=== PATIENT | female | born 1950 | race Caucasian/White ===

== ENCOUNTER → 2017-06-19 | Day surgery (SDC) | payer MEDICARE, BC ==
[~2017-06-19] MED LIST: AMLODIPINE BESY10 MG PO; ASPIRIN; ASPIRIN81 M1 PO; ASPIRIN81 MG PO; B COMPLEX1 CA1 PO; CARAFATE1 G PO; CELEXA20 MG PO; FLAGYL PO; HYDROCODONE-APA1 T42 PO; KEFLEX; LISINOPRIL20 MG PO; LOTREL 10/20 MG1 CAP; MELOXICAM15 MG PO; NORCO 7.5/325 T1 TAB; NORVASC10 MG PO; OMEPRAZOLE40 MG PO; PAMELOR50 M1 PO; PAXIL; PREMARIN; PRILOSEC; PRILOSEC40 MG PO; PRINIVIL20 M1 PO; PROTONIX PO; SIMVASTATIN20 MG PO; ULTRACET TABLET1 TAB PO; VICODIN 5/500 T1 TAB; VITAMIN D2000 UNI1 PO; VYTORIN 10/20 T1 TAB; WELCHOL625 MG PO; ZOCOR PO; ZOCOR20 MG PO
--- NOTE | ~2017-06-19 | OR ---
Unit #: [id number] #: [id number] Patient: SPEEDY KILGORE [id number] [address] [place], [place] [address] [id number] O MR#: [id number] NAME: SPEEDY KILOGRE ROOM: Date of Procedure: 06/19/2017 Admission Date: 06/19/2017 Surgeon: Ross Crump M.D. : 1950 Attending Physician: Ross Crump M.D. Primary Care Physician: Primary Care Physician No OPERATIVE REPORT PREOPERATIVE DIAGNOSES The patient presented with history of epigastric pain, dyspepsia, heartburn as well as in addition, she needs colorectal cancer screening or surveillance colonoscopy, having had previous history of colon polyps. PROCEDURES PERFORMED Upper gastrointestinal endoscopy and biopsy as well as colonoscopy with polypectomy. POSTOPERATIVE DIAGNOSES For upper endoscopy: 1. The patient had multiple polyps in the prepyloric antral area. In addition, there was evidence of prepyloric antral diffuse gastritis. 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 A biopsy obtained from the antrum for CLOtest. Rest of the examination up to third part of duodenum was normal. For colonoscopy: 1. Two sessile polyps noted both in the ascending colon, these were 5 mm and a 1 cm each. Both were removed using snare cautery polypectomy. They were retrieved and sent for histology. Rest of the examination up to cecum and terminal ileum was normal. The quality of the prep was excellent. RECOMMENDATIONS The patient will be followed up in the office in 3 to 4 months' time. In the meantime, she will continue on current dose of PPI therapy. Nexium 40 mg p.o. daily. SEDATION USED MAC. DESCRIPTION OF PROCEDURE Following detailed explanation of the potential risks and complications of an upper endoscopy and a colonoscopy, namely perforation, bleeding, and complications related to sedation, the patient was brought to GI lab and laid in the left lateral decubitus position. Lubricated tip of the Olympus video upper endoscope was passed through the bite block into the proximal esophagus under direct vision. The entire esophageal mucosa was examined and appeared normal. Z-line was nicely demarcated, there being no esophagitis or hiatus hernia. The scope was then advanced into the gastric cavity and the latter was insufflated. Mucosa of the fundus, body, and antrum examined. The patient was noted to have multiple sessile polyps in the prepyloric antral area along with evidence of gastritis and Unit #: [id number] #: [id number] Patient: SPEEDY KILGORE Y multiple AVMs, none of which were actively bleeding. Pylorus was intubated with visualization of normal duodenal bulb and second and third part of the duodenum. Upon withdrawal and retroflexion, incisura, cardia, and greater curve examined and biopsy obtained from the antrum for CLOtest. The scope was then withdrawn in the distal esophagus. The entire esophageal mucosa was examined all the way up to pharynx. No additional findings noted. The examination table was then turned by 180 degrees and the patient positioned for a colonoscopy. A digital rectal examination was performed, which was normal. Lubricated tip of the Olympus video colonoscope was inserted through the anus and advanced under direct vision. The scope was advanced and passed up to sigmoid into descending colon. No diverticula were noted in this area. The scope tip was then navigated all the way up to cecum with visualization of the ileocecal valve and the appendiceal orifice. Preparation was excellent with good visualization and photodocumentation was obtained. Last few inches of terminal ileum also visualized after intubation of the ileocecal valve and appeared normal. Successive segments of the colonic mucosa were examined upon withdrawal. Two polyps noted in the ascending colon, these were 5 mm and 1 cm each. Both were removed using snare cautery polypectomy. They were retrieved and sent for histology. No additional polyps noted. The patient did not have any diverticulosis nor any hemorrhoids. The scope was then withdrawn. The patient returned to the recovery area. She tolerated the procedure without any postprocedure complications. Dictated by... Candida Garay TD: 06/19/2017 10:38 JOB #: [id number] CC: Denise Loyd M.D. OPERATIVE REPORT Page 1 of 1 X Ross Crump MD X PROCEDURE OPERATIVE NOTE
--- NOTE | ~2017-06-19 | OR ---
Unit #: [id number] #: [id number] Patient: SPEEDY KILGORE [id number] [address] [place], [place] [address] [id number] O MR#: [id number] NAME: SPEEDY KILGORE ROOM: Date of Procedure: 06/19/2017 Admission Date: 06/19/2017 Surgeon: Ross Crump M.D. : 1950 Attending Physician: Ross Crump M.D. OPERATIVE REPORT PREOPERATIVE DIAGNOSES The patient presented for surveillance for an upper endoscopy. She has personal history of Flynn esophagus. PROCEDURES PERFORMED Upper gastrointestinal endoscopy and biopsies. POSTOPERATIVE DIAGNOSES 1. Small hiatus hernia. 2. Underlying Flynn esophagus. 3. Multiple polyps in the gastric fundus suggestive of hyperplastic polyps. Biopsies obtained from the Flynn segment and sent for histology. The patient also had evidence of distal erosive esophagitis. Rest of the examination up to third part of duodenum was normal. RECOMMENDATIONS The patient will continue on b.i.d. PPI therapy and will be followed up in the office in 6 months' time. She will require a repeat endoscopy in 2 years. SEDATION USED MAC. DESCRIPTION OF PROCEDURE Following detailed explanation of the potential risks and complications of an upper endoscopy, namely perforation, bleeding, and complications related to sedation, the patient was brought to GI lab and laid in the left lateral decubitus position. Lubricated tip of the Olympus video upper endoscope was passed through the bite block into the proximal esophagus under direct vision. The entire esophageal mucosa was examined, the patient was noted to have evidence of Flynn esophagus in the distal esophagus with classic appearance. In addition, a small hiatus hernia was noted. The scope was then advanced into the gastric cavity. Mucosa of the fundus, body, and antrum examined. Multiple polyps were seen in the gastric fundus. These were suggestive of hyperplastic polyps. Pylorus was intubated with visualization of the normal duodenal bulb and second and third part of the duodenum. Upon withdrawal and retroflexion, incisura, cardia, and greater curve examined and no additional findings noted. The scope was then withdrawn in the distal esophagus. Multiple biopsies obtained from the Flynn segment and sent for histology. The entire esophageal mucosa was examined all the way up to pharynx. No additional findings noted. The patient tolerated the procedure without Unit #: [id number] #: [id number] Patient: SPEEDY KILGORE any postprocedure complications. Dictated by... Candida Garay/abdulaziz TD: 06/19/2017 11:21 JOB #: [id number] CC: Pam Walls A.P.R.N. OPERATIVE REPORT Page 1 of 1 X Ross Crump MD X PROCEDURE OPERATIVE NOTE
== END | disposition home or self-care (01) ==
LOC: COPS 07:40
DX: Z12.11 Encounter for screening for malignant neoplasm of colon (principal); K21.0 Gastro-esophageal reflux disease with esophagitis; K63.5 Polyp of colon; K29.70 Gastritis, unspecified, without bleeding; K44.9 Diaphragmatic hernia without obstruction or gangrene; Q27.33 Arteriovenous malformation of digestive system vessel; K63.89 Other specified diseases of intestine; I10 Essential (primary) hypertension; M50.30 Other cervical disc degeneration, unspecified cervical region; Z88.2 Allergy status to sulfonamides; Z88.8 Allergy status to other drugs, medicaments and biological substances; Z88.5 Allergy status to narcotic agent; Z79.82 Long term (current) use of aspirin; Z79.899 Other long term (current) drug therapy; Z79.1 Long term (current) use of non-steroidal anti-inflammatories (NSAID); Z90.49 Acquired absence of other specified parts of digestive tract; Z90.710 Acquired absence of both cervix and uterus; Z98.890 Other specified postprocedural states
CPT/HCPCS: 88305

== ENCOUNTER 2017-07-21 22:43 | Emergency (ER) | payer MEDICARE, BC ==
[~2017-07-21] VITALS: Ht 157.5 cm; Wt 105.7 kg
--- NOTE | ~2017-07-21 | CR181 ---
[facility] A Service of [facility] RADIOLOGY TEXT RESULTS PATIENT: SPEEDY KILGORE LOCATION: [facility] : [birth year] UNIT #: [id number] AGE: [address]: Ander Jalloh MD SEX: F ORDER DR: [id number] [facility] [address] [facility]. [place], [place] [address] [id number] E MR#: [id number] Acc #: [id number] NAME: SPEEDY KILGORE. : 1950 SEX: F STUDY DATE/TIME: 07/21/2017 23:37 UNIT: [facility] ROOM: STUDY DESCRIPTION: CR Lumbar Spine 2 or 3 Views Attending Physician: Ander Jalloh M.D. Ordering Physician: Ander Jalloh M.D. Primary Care Physician: No Primary Care Physician MEDICAL IMAGING REPORT This report is preliminary unless electronic signature is present EXAM Lumbar spine series. INDICATIONS Back pain after a fall today. PROCEDURE Four views of the lumbar spine. COMPARISON None. FINDINGS Lumbar bodies have normal height. Multilevel degenerative disc disease. 8 mm retrolisthesis of L3 on L4. Multilevel facet arthrosis. IMPRESSION 1. No acute findings. 2. Multilevel degenerative change. 3. 8 mm of retrolisthesis L3 on L4. Dictated by... Henrique Pressley M.D. THIS IS AN ELECTRONICALLY VERIFIED REPORT Henrique Pressley M.D. at 07/22/2017 10:01 PM MACKENZIE/ana TD: 07/22/2017 19:00 JOB #: [id number] MEDICAL IMAGING REPORT [facility] A Service of [facility] RADIOLOGY TEXT RESULTS PATIENT: SPEEDY KILGORE LOCATION: [facility] : [birth year] UNIT #: [id number] AGE: [address]: Ander Jalloh MD SEX: F ORDER DR: Page 1 of 1 COPY
--- NOTE | ~2017-07-21 | CT71 ---
[facility] A Service of [facility] RADIOLOGY TEXT RESULTS PATIENT: SPEEDY KILGORE LOCATION: [facility] : 54 UNIT #: [id number] AGE: [address]: Ander Jalloh MD SEX: F ORDER DR: [id number] [place] [id number] [facility]. [place], [place] [address] [id number] E MR#: [id number] Acc #: [id number] NAME: SPEEDY KILGORE. : 1950 SEX: F STUDY DATE/TIME: 07/21/2017 23:32 UNIT: [facility] ROOM: STUDY DESCRIPTION: CT Head Wo Contrast Attending Physician: Ander Jalloh M.D. Ordering Physician: Ander Jalloh M.D. Primary Care Physician: No Primary Care Physician MEDICAL IMAGING REPORT This report is preliminary unless electronic signature is present EXAM CT head without contrast. INDICATIONS Head pain after a fall today. PROCEDURE Unenhanced CT of the head. This CT exam was performed with one or more of the following radiation dose reduction techniques: automatic exposure control, adjustment of mA and/or kV according to patient size, and iterative reconstruction. COMPARISON None. FINDINGS No acute hemorrhage, abnormal mass effect, extraaxial fluid collection or hydrocephalus. No depressed calvarial fracture. Paranasal sinuses and mastoid air cells clear. IMPRESSION No acute intracranial findings. Dictated by... Henrique Pressley M.D. THIS IS AN ELECTRONICALLY VERIFIED REPORT Henrique Pressley M.D. at 07/22/2017 10:03 PM MACKENZIE/ana TD: 07/22/2017 18:55 JOB #: [id number] [facility] A Service of [facility] RADIOLOGY TEXT RESULTS PATIENT: SPEEDY KILGORE LOCATION: [facility] : 54 UNIT #: [id number] AGE: [address]: Ander Jalloh MD SEX: F ORDER DR: MEDICAL IMAGING REPORT Page 1 of 1 COPY
--- NOTE | ~2017-07-21 | CT52 ---
[facility] A Service of [facility] RADIOLOGY TEXT RESULTS PATIENT: SPEEDY KILGORE LOCATION: [facility] : 54 UNIT #: [id number] AGE: [address]: Ander Jalloh MD SEX: F ORDER DR: [id number] [facility] [address] [facility]. [place], [place] [address] [id number] E MR#: [id number] Acc #: [id number] NAME: SPEEDY KILGORE. : 1950 SEX: F STUDY DATE/TIME: 07/21/2017 23:35 UNIT: [facility] ROOM: STUDY DESCRIPTION: CT Cervical Spine Wo Cont Attending Physician: Ander Jalloh M.D. Ordering Physician: Ander Jalloh M.D. Primary Care Physician: No Primary Care Physician MEDICAL IMAGING REPORT This report is preliminary unless electronic signature is present EXAM CT cervical spine without contrast. INDICATIONS Neck pain after a fall today. PROCEDURE Unenhanced CT of the cervical spine. This CT exam was performed with one or more of the following radiation dose reduction techniques: automatic exposure control, adjustment of mA and/or kV according to patient size, and iterative reconstruction. COMPARISON None. FINDINGS Patient is status post fusion at C4 through C7. There are anterior fixation screws at C4-5. There is one remaining screw in the left aspect of C7. Overall alignment is preserved. Degenerative change at C3-4 and in the included lower cervical and upper thoracic spine. Multilevel facet arthrosis. The craniocervical junction and the dens are intact. No acute fracture. No critical central canal narrowing. IMPRESSION No acute findings in the cervical spine. Dictated by... Henrique Pressley M.D. THIS IS AN ELECTRONICALLY VERIFIED REPORT Henrique Pressley M.D. at 07/22/2017 10:03 PM MACKENZIE/ana [facility] A Service of [facility] RADIOLOGY TEXT RESULTS PATIENT: SPEEDY KILGORE LOCATION: [facility] : 54 UNIT #: [id number] AGE: [address]: Ander Jalloh MD SEX: F ORDER DR: TD: 07/22/2017 18:56 JOB #: [id number] MEDICAL IMAGING REPORT Page 1 of 1 COPY
== END 2017-07-22 00:55 | disposition home or self-care (01) ==
LOC: CED 22:43
DX: S16.1XXA Strain of muscle, fascia and tendon at neck level, initial encounter (principal); I10 Essential (primary) hypertension; W18.00XA Striking against unspecified object with subsequent fall, initial encounter; Y92.009 Unspecified place in unspecified non-institutional (private) residence as the place of occurrence of the external cause
CPT/HCPCS: 70450; 72100; 72125; 96372; 99284; J1885